=== PATIENT | female | born 1990 | race Caucasian/White ===

== ENCOUNTER 2019-09-16 08:10 | Emergency (ER) | payer MEDICAID ==
[~2019-09-16] VITALS: Ht 162.6 cm; Wt 72.7 kg
[~2019-09-16 08:10] MED LIST: NO HOME MEDICATIONS; NORCO 325 MG-51 TAB PO; PRENATAL PLUS1 TA2 PO; PRENATAL1 TA1 PO
[2019-09-16 08:18] VITALS: BP 110/70; TEMP 98.1
[2019-09-16 09:10] VITALS: PULSE 83
== END 2019-09-16 09:10 | disposition home or self-care (01) ==
LOC: COL.ER 08:10
DX: S76.812A Strain of other specified muscles, fascia and tendons at thigh level, left thigh, initial encounter (principal); F17.210 Nicotine dependence, cigarettes, uncomplicated; X50.0XXA Overexertion from strenuous movement or load, initial encounter; Y92.009 Unspecified place in unspecified non-institutional (private) residence as the place of occurrence of the external cause
CPT/HCPCS: J1885

== ENCOUNTER 2019-09-21 10:23 | Emergency (ER) | payer MEDICAID ==
[~2019-09-21] VITALS: Ht 162.6 cm; Wt 72.7 kg
[2019-09-21 10:25] VITALS: BP 124/77
[2019-09-21 11:45] VITALS: PULSE 89; TEMP 97.9
== END 2019-09-21 11:46 | disposition home or self-care (01) ==
LOC: COL.ER 10:23
DX: J20.9 Acute bronchitis, unspecified (principal); F17.210 Nicotine dependence, cigarettes, uncomplicated; Z90.710 Acquired absence of both cervix and uterus
CPT/HCPCS: J1100

== ENCOUNTER 2019-12-15 09:56 | Emergency (ER) | payer SELFPAY ==
[~2019-12-15] VITALS: Ht 162.6 cm; Wt 77.5 kg
[2019-12-15 10:10] VITALS: BP 111/66; TEMP 97.8
[2019-12-15 11:03] LABS: COLLECTION METHOD CLEAN CATCH
[2019-12-15 11:10] LABS: MUCOUS Present /lpf; PH 8 (5-8); SQUAMOUS EPITHELIAL 20-50 /hpf; URINE APPEARANCE Cloudy; URINE BACTERIA Rare /hpf; URINE BILIRUBIN Negative (NEGATIVE); URINE BLOOD Negative (NEGATIVE); URINE COLOR Yellow; URINE GLUCOSE Negative (NEGATIVE); URINE KETONE Negative (NEGATIVE); URINE LEUKOCYTE ESTERASE 1+ (NEGATIVE); URINE NITRATE Negative (NEGATIVE); URINE PROTEIN(semi-quant) Negative (NEGATIVE); URINE UROBILINOGEN Negative (NEGATIVE)
[2019-12-15] MEDS ORDERED: PHENERGAN 25 TA25 MG PO (11:34)
[2019-12-15] MEDS ORDERED: NEXIUM 20MG20 MG PO (11:34)
[2019-12-15 11:55] VITALS: PULSE 84
== END 2019-12-15 11:55 | disposition home or self-care (01) ==
LOC: COL.ER 09:56
PROVIDERS: Emergency Medicine
DX: K29.70 Gastritis, unspecified, without bleeding (principal); F17.210 Nicotine dependence, cigarettes, uncomplicated; Z90.710 Acquired absence of both cervix and uterus
CPT/HCPCS: J2550

== ENCOUNTER 2020-01-14 20:34 | Emergency (ER) | payer MEDICAID ==
[~2020-01-14] VITALS: Ht 165.1 cm; Wt 77.3 kg
[~2020-01-14 20:34] MED LIST changes: +NEXIUM 20MG20 MG PO; +PHENERGAN 25 TA25 MG PO
[2020-01-14 20:37] VITALS: BP 114/80; TEMP 97.9
[2020-01-14 21:01] LABS: COLLECTION METHOD CLEAN CATCH
[2020-01-14 21:11] LABS: MUCOUS Present /lpf; PH 6 (5-8); URINE APPEARANCE Hazy; URINE BACTERIA Rare /hpf; URINE BILIRUBIN Negative (NEGATIVE); URINE BLOOD 3+ (NEGATIVE); URINE CALCIUM OXALATE CRYSTAL Present /hpf; URINE COLOR Yellow; URINE GLUCOSE Negative (NEGATIVE); URINE KETONE Negative (NEGATIVE); URINE LEUKOCYTE ESTERASE Trace (NEGATIVE); URINE NITRATE Negative (NEGATIVE); URINE PROTEIN(semi-quant) Negative (NEGATIVE); URINE RBC >50 /hpf; URINE UROBILINOGEN Negative (NEGATIVE)
[2020-01-14 21:31] VITALS: PULSE 97
[2020-01-15] MEDS ORDERED: ZITHROMAX 250M250 MG PO (08:27)
[2020-01-15] MEDS ORDERED: CEPHALEXIN500 M1 PO (08:27)
[2020-01-15] MEDS ORDERED: FLAGYL500 MG PO (08:27)
== END 2020-01-14 21:36 | disposition home or self-care (01) ==
LOC: COL.ER 20:34
PROVIDERS: Physician Assistant
DX: A56.09 Other chlamydial infection of lower genitourinary tract (principal); N76.0 Acute vaginitis; F17.210 Nicotine dependence, cigarettes, uncomplicated; F17.290 Nicotine dependence, other tobacco product, uncomplicated